=== PATIENT | male | born 1990 | race Caucasian/White ===

== ENCOUNTER 2019-10-23 06:40 | Emergency (ER) | payer OTHER ==
--- OUTSIDE RECORDS SUMMARY | 2019-10-23 06:42 | XMS REPORT ---
:1990 Author Organization eClinicalWorks Care Team Providers Name Role Phone Nazario Ochoa Provider Role Unavailable Allergies, Adverse Reactions, Alerts Substance Reaction Event Type N.K.D.A. Info Not Available Non Drug Allergy Problems Problem Type Condition Code Onset Dates Condition Status Problem Obstructive sleep apnea syndrome G47.33 Active Problem Mild intermittent asthma, J45.20 Active unspecified whether complicated Problem Acquired hypothyroidism E03.9 Active Assessment Strep pharyngitis J02.0 Active Problem Seasonal allergic rhinitis, J30.2 Active unspecified trigger Medications Medication Code Code Instructions Start End Status Dosage System Date Date ProAir HFA [facility] 36888020876 108 (90 Base) March 29, Active 2 puffs as MCG/ACT 2019 needed Inhalation every 6 hrs Fluticasone [facility] 12268453246 50 MCG/ACT May 10, Active 1 spray in Propionate Nasally Once a 2019 each day nostril Carbinoxamine [facility] 99713719205 4 MG Orally May 10April Active 1 tablet Maleate Three times a 2019 28, as needed day 2018 Montelukast [facility] 01673532625 10 MG Orally April 17, Active 1 tablet Sodium Once a day 2018 Singulair [facility] 70348560815 10 MG Orally Active 1 tablet Once a day Augmentin [facility] 26538966367 875-125 MG May 10April Active 1 tablet Orally every 12 2019 23, hrs 2019 Results No Known Results Summary Purpose eClinicalWorks Submission
--- OUTSIDE RECORDS SUMMARY | 2019-10-23 06:42 | XMS REPORT ---
[...] complicated Problem Acquired hypothyroidism E03.9 Active Assessment Seasonal allergic rhinitis, J30.2 Active unspecified trigger Assessment Acquired hypothyroidism E03.9 Active Problem Seasonal allergic rhinitis, J30.2 Active unspecified trigger Medications Medication Code Code Instructions Start End Status Dosage System Date Date Singulair [facility] 47591292283 10 MG Orally Active 1 tablet Once a day ProAir HFA [facility] 53913929052 108 (90 Base) March 29, Active 2 puffs MCG/ACT 2018 as needed Inhalation every 6 hrs Montelukast [facility] 28832061119 10 MG Orally April 17, Active 1 tablet Sodium Once a day 2018 Results No Known Results Summary Purpose eClinicalWorks Submission
[2019-10-23] MEDS ORDERED: NA CHLORIDE 0.9% 1,000 ML ONE (07:14)
[2019-10-23] MEDS ORDERED: ONDANSETRON 4 MG/2 ML VIAL ONE (07:14)
[2019-10-23 07:31] LABS: Absolute Lymphocytes (CBC) 1.5 K/uL (0.7-4.9); Basophils % 0.5 % (0-1.3); Lymphocytes % 28.3 % (15.3-44.8); MPV 8.4 fL (7.6-11.3); RBC Red Blood Cell Count 5.53 M/uL (4.33-5.43)
[2019-10-23 07:38] LABS: Albumin 4.4 g/dL (3.4-5.0); Bilirubin Direct 0.2 mg/dL (0-0.2); Bilirubin Total 0.6 mg/dL (0.2-1.0); Potassium 3.8 mmol/L (3.5-5.1)
--- NOTE | 2019-10-23 07:55 | EDPHYS ---
Physician Documentation [facility] Name: Rashel Serra Age: 28 yrs Sex: Male : 1990 Arrival Date: 10/23/2019 Time: 06:42 Bed 6 Private MD: ED Physician Diogenes Muse HPI: 10/23 07:51 This 28 yrs old Male presents to ER via Ambulatory with complaints of jr8 Dizziness. 07:51 The patient presents with generalized weakness, lightheadedness. Onset: The jr8 symptoms/episode began/occurred suddenly, yesterday. Context: occurred at home, occurred while the patient was standing. Modifying factors: The symptoms are alleviated by nothing, the symptoms are aggravated by standing up, changing position. Associated signs and symptoms: The patient has no apparent associated signs or symptoms. Severity of symptoms: At their worst the symptoms were mild in the emergency department the symptoms are unchanged. Patient's baseline: Neuro: alert and fully oriented, Motor: no deficits, Ambulation: walks without assistance, Speech: normal. The patient has not experienced similar symptoms in the past. The patient has not recently seen a physician. Patient stated that he has been undergoing treatment and work up for continued bloating, nausea, and bowel changes. Stated that he had recent EGD and colonoscopy. Was diagnosed with hiatal hernia and gastritis. Still r/o Crohns'. Has not been eating and drinking much over the past several days. Yesterday became lightheaded and dizzy . Historical: - Allergies: 06:57 No Known Allergies; bb - Home Meds: 06:57 Cipro Oral [Active]; Flagyl Oral [Active]; Omeprazole Oral [Active]; Tramadol Oral bb [Active]; probiotic [Active]; - PMHx: 06:57 gastritis; hiatal hernia; bb - PSHx: 06:57 colonoscopy; bb - Immunization history:: Adult Immunizations up to date. - Social history:: Smoking status: . - Ebola Screening: : No symptoms or risks identified at this time. ROS: 07:51 Constitutional: Negative for fever, chills, and weight loss, Eyes: Negative for injury, jr8 pain, redness, and discharge, ENT: Negative for injury, pain, and discharge, Neck: Negative for injury, pain, and swelling, Cardiovascular: Negative for chest pain, palpitations, and edema, Respiratory: Negative for shortness of breath, cough, wheezing, and pleuritic chest pain, Back: Negative for injury and pain, MS/Extremity: Negative for injury and deformity, Skin: Negative for injury, rash, and discoloration. 07:51 Abdomen/GI: Positive for nausea, abdominal cramps, Negative for diarrhea, constipation, abdominal distension, anorexia, dysphagia, hematemesis, black/tarry stool, rectal pain, rectal bleeding, bowel incontinence, flatulence. 07:51 Neuro: Positive for dizziness. Exam: 07:51 Eyes: Pupils equal round and reactive to light, extra-ocular motions intact. Lids and jr8 lashes normal. Conjunctiva and sclera are non-icteric and not injected. Cornea within normal limits. Periorbital areas with no swelling, redness, or edema. ENT: Nares patent. No nasal discharge, no septal abnormalities noted. Tympanic membranes are normal and external auditory canals are clear. Oropharynx with no redness, swelling, or masses, exudates, or evidence of obstruction, uvula midline. Mucous membranes moist. Neck: Trachea midline, no thyromegaly or masses palpated, and no cervical lymphadenopathy. Supple, full range of motion without nuchal rigidity, or vertebral point tenderness. No Meningismus. Cardiovascular: Regular rate and rhythm with a normal S1 and S2. No gallops, murmurs, or rubs. Normal PMI, no JVD. No pulse deficits. Respiratory: Lungs have equal breath sounds bilaterally, clear to auscultation and percussion. No rales, rhonchi or wheezes noted. No increased work of breathing, no retractions or nasal flaring. Abdomen/GI: Soft, non-tender, with normal bowel sounds. No distension or tympany. No guarding or rebound. No evidence of tenderness throughout. Back: No spinal tenderness. No costovertebral tenderness. Full range of motion. Skin: Warm, dry with normal turgor. Normal color with no rashes, no lesions, and no evidence of cellulitis. MS/ Extremity: Pulses equal, no cyanosis. Neurovascular intact. Full, normal range of motion. Neuro: Awake and alert, GCS 15, oriented to person, place, time, and situation. Cranial nerves II-XII grossly intact. Motor strength 5/5 in all extremities. Sensory grossly intact. Cerebellar exam normal. Normal gait. Vital Signs: 06:51 BP 155 / 94; Pulse 99; Resp 16; Temp 98(O); Pulse Ox 99% on R/A; ea 06:57 Weight 132 kg (R); Height 6 ft. 3 in. (190.50 cm) (R); bb 07:50 BP 126 / 86; Pulse 77; Resp 16; Pulse Ox 96% ; sv 06:57 Body Mass Index 36.37 (132.00 kg, 190.50 cm) bb MDM: 06:52 Patient medically screened. jr8 07:50 Data reviewed: vital signs, nurses notes, lab test result(s). Data interpreted: Pulse jr8 oximetry: on room air is 99 %. Interpretation: normal. Counseling: I had a detailed discussion with the patient and/or guardian regarding: the historical points, exam findings, and any diagnostic results supporting the discharge/admit diagnosis, lab results, the need for outpatient follow up, a drafter castings, to return to the emergency department if symptoms worsen or persist or if there are any questions or concerns that arise at home. Response to treatment: patient is well hydrated. ED course: Patient feeling better after fluids. Will increase his omeprazole dosage and put him on Bentyl to help relieve his bloating and gastritis symptoms. Will f/u with his GI again after this week. Scheduled to have barium swallow. Knows to come back if worse . 10/23 07:06 Order name: Basic Metabolic Panel; Complete Time: 07:40 10/23 07:06 Order name: CBC with Diff; Complete Time: 07:40 10/23 07:06 Order name: Creatinine for Radiology; Complete Time: 07:40 10/23 07:06 Order name: Hepatic Function; Complete Time: 07:40 8 10/23 07:06 Order name: Lipase; Complete Time: 07:40 8 10/23 07:06 Order name: IV Saline Lock; Complete Time: 07:17 10/23 07:06 Order name: Labs collected and sent; Complete Time: 07:17 Administered Medications: 07:12 Drug: NS 0.9% 1000 ml Route: IV; Rate: 1000 ml; Site: right antecubital; sg 07:12 Drug: Zofran 4 mg Route: IVP; Site: right antecubital; sg 07:50 Follow up: Response: No adverse reaction; Nausea is decreased sg Disposition: 10/23/19 07:54 Discharged to Home. Impression: Dehydration. - Condition is Stable. - Discharge Instructions: Dehydration, Adult. - Prescriptions for omeprazole 40 mg Oral capsule,delayed release(DR/EC) - take 1 capsule by ORAL route once daily before a meal; 30 capsule. Bentyl 20 mg Oral Tablet - take 2 tablet by ORAL route every 6 hours As needed; 40 tablet. Zofran 4 mg Oral Tablet - take 1 tablet by ORAL route every 12 hours As needed; 20 tablet. - Work release form, Medication Reconciliation Form, Thank You Letter, Antibiotic Education, Prescription Opioid Use form. - Follow up: Private Physician; When: 1 week; Reason: Recheck today's complaints, Continuance of care, Re-evaluation by your physician. - Problem is new. - Symptoms have improved. Addendum: 10/29/2019 10:52 Co-signature as Attending Physician, Diogenes Muse MD I agree with the assessment and c quinones plan of care. Signatures: Dispatcher [employer] EDStephane Uribe RN RN sg Anderson, Corey, MD MD cha Ballard, Brenda, RN RN Lola Rojas RN RN iw Roszak, Josh, PA PA jr8 Corrections: (The following items were deleted from the chart) 10/23 08:10 07:54 10/23/2019 07:54 Discharged to Home. Impression: Dehydration. Condition is iw Stable. Forms are Work release form, Medication Reconciliation Form, Thank You Letter, Antibiotic Education, Prescription Opioid Use. Follow up: Private Physician; When: 1 week; Reason: Recheck today's complaints, Continuance of care, Re-evaluation by your physician. Problem is new. Symptoms have improved. jr8
--- NOTE | 2019-10-23 07:55 | ER ---
Nurse's Notes [facility] Name: Rashel Serra Age: 28 yrs Sex: Male : 1990 Arrival Date: 10/23/2019 Time: 06:42 Bed 6 Private MD: Diagnosis: Dehydration Presentation: 10/23 06:54 Presenting complaint: Patient states: he had an EGD and colonoscopy done 10/05 was bb diagnosed with gastritis, hiatal hernia, polyps, and since then he has been having nausea, mild discomfort to his abdomen and back and is feeling dizzy, he has not been able to eat or drink much this last week. Transition of care: patient was not received from another setting of care. Onset of symptoms was October 05, 2019. Risk Assessment: Do you want to hurt yourself or someone else? Patient reports no desire to harm self or others. Initial Sepsis Screen: Does the patient meet any 2 criteria? No. Patient's initial sepsis screen is negative. Does the patient have a suspected source of infection? No. Patient's initial sepsis screen is negative. Care prior to arrival: None. 06:54 Method Of Arrival: Ambulatory bb 06:54 Acuity: DILIA 3 bb Historical: - Allergies: 06:57 No Known Allergies; bb - Home Meds: 06:57 Cipro Oral [Active]; Flagyl Oral [Active]; Omeprazole Oral [Active]; Tramadol Oral bb [Active]; probiotic [Active]; - PMHx: 06:57 gastritis; hiatal hernia; bb - PSHx: 06:57 colonoscopy; bb - Immunization history:: Adult Immunizations up to date. - Social history:: Smoking status: . - Ebola Screening: : No symptoms or risks identified at this time. Screenin:52 Abuse screen: Denies threats or abuse. Nutritional screening: No deficits noted. ea Tuberculosis screening: No symptoms or risk factors identified. Assessment: 07:11 General: Appears in no apparent distress. well groomed, well developed, well nourished, sg Behavior is calm, cooperative, appropriate for age, quiet. Pain: Denies pain. Neuro: Level of Consciousness is awake, alert, obeys commands, Oriented to person, place, time, situation, Emergency Medical Service Coordinator are equal bilaterally Moves all extremities. Full function Gait is steady, Speech is normal, Facial symmetry appears normal, Reports dizziness. Cardiovascular: Patient's skin is warm and dry. Chest pain is denied. Respiratory: Airway is patent Respiratory effort is even, unlabored, Respiratory pattern is regular, symmetrical. GI: No signs and/or symptoms were reported involving the gastrointestinal system. : No signs and/or symptoms were reported regarding the genitourinary system. EENT: No signs and/or symptoms were reported regarding the EENT system. Derm: Skin is pink, warm \T\ dry. Musculoskeletal: Circulation, motion, and sensation intact. Range of motion: intact in all extremities. Vital Signs: 06:51 BP 155 / 94; Pulse 99; Resp 16; Temp 98(O); Pulse Ox 99% on R/A; ea 06:57 Weight 132 kg (R); Height 6 ft. 3 in. (190.50 cm) (R); bb 07:50 BP 126 / 86; Pulse 77; Resp 16; Pulse Ox 96% ; sv 06:57 Body Mass Index 36.37 (132.00 kg, 190.50 cm) bb ED Course: 06:42 Patient arrived in ED. cl3 06:51 Evaristo Kirby PA is PHCP. jr8 06:52 Diogenes Muse MD is Attending Physician. jr8 06:52 Patient has correct armband on for positive identification. Placed in gown. Bed in low ea position. Call light in reach. Adult w/ patient. 06:52 Arm band placed on right wrist. Patient placed in an exam room, on a stretcher, on ea pulse oximetry. 06:56 Triage completed. bb 07:10 Inserted saline lock: 22 gauge in right antecubital area, using aseptic technique. kj1 Blood collected. 07:16 Stephane Arguello, RN is Primary Nurse. sg 08:05 No provider procedures requiring assistance completed. IV discontinued, intact, sg bleeding controlled, No redness/swelling at site. Pressure dressing applied. Administered Medications: 07:12 Drug: NS 0.9% 1000 ml Route: IV; Rate: 1000 ml; Site: right antecubital; sg 07:12 Drug: Zofran 4 mg Route: IVP; Site: right antecubital; sg 07:50 Follow up: Response: No adverse reaction; Nausea is decreased sg Outcome: 07:54 Discharge ordered by . jr8 08:05 Discharged to home ambulatory, with family. sg 08:05 Condition: good 08:05 Discharge instructions given to patient, family, Instructed on discharge instructions, follow up and referral plans. no drinking with medication, no driving heavy equipment, medication usage, safety practices, Demonstrated understanding of instructions, follow-up care, medications, Prescriptions given X 3. 08:10 Patient left the ED. Signatures: Judie Calvo RN SEMAJ sv Stephane Arguello RN RN sg Ballard, Brenda, RN RN bb Williams, Irene, RN RN Evaristo Kirby PA PA jr8 Mickie Owen RN RN ea Jackson, Kandis kj1 John Cannon cl3
[2019-10-23 08:22] VITALS: TEMP 98
[2019-10-23 08:23] VITALS: BP 126/86; O2SAT 96
== END 2019-10-23 08:10 | disposition home or self-care (01) ==
LOC: ER 06:40
DX: E86.0 Dehydration (principal); K29.70 Gastritis, unspecified, without bleeding
CPT/HCPCS: 85025; 80048; 36415; 80076; 83690; 96374; 99284; J7030; J2405